=== PATIENT | male | born 1950 | race Caucasian/White ===

== ENCOUNTER 2018-03-02 14:28 | Outpatient (CLI) | payer OTHER, MEDICARE | END 2018-03-02 16:28 | disposition home or self-care (01) | LOC: VAS 14:28 | DX: M79.605 Pain in left leg (principal); M79.604 Pain in right leg | CPT/HCPCS: 93970 ==

== ENCOUNTER 2019-02-04 08:01 | Day surgery (SDC) | payer MEDICARE ==
[~2019-02-04] VITALS: Ht 185.4 cm; Wt 105.2 kg
--- NOTE | 2019-02-04 07:03 | Anethesia Preoperative Eval ---
Anesthesia Pre-op PMH/ROS General Date of Evaluation: February 04, 2019 Time of Evaluation: 07:02 Anesthesiologist: lourdes ASA Score: ASA 3 Mallampati Score Class I : Soft palate, uvula, fauces, pillars visible Class II: Soft palate, uvula, fauces visible Class III: Soft palate, base of uvula visible Class IV: Only hard plate visible Mallampati Classification: Class II Surgeon: adelaide Diagnosis: gerd, hx/o colon polyps Surgical Procedure: egd/colonoscopy Social History: smoking - former smoker Family History: no anesthesia problems Allergies: Coded Allergies: No Known Allergies (Unverified , 02/03/19) Medications: see eMAR Patient NPO?: Yes Past Medical History Cardiovascular: Reports: HTN Endocrine: Reports: DM Musculoskeletal/Integumentary: Reports: OA Anesthesia Pre-op Phys. Exam Physician Exam Last Vital Signs Date Time Temp Pulse Resp B/P (MAP) Pulse Ox O2 Delivery O2 Flow Rate FiO2 02/04/19 08:51 Room Air 02/04/19 08:45 98.7 60 20 124/74 97 Constitutional: NAD Neurologic: CN 2-12 intact Cardiovascular: RRR Respiratory: CTA Gastrointestinal: S/NT/ND Airway Exam Mallampati Score: Class II MO: limited Neck: flexible TMD: 2fb ROM: limited Anesthesia Pre-op A/P Risk Assessment & Plan Assessment: asa3 Plan: mac Status Change Before Surgery: No Pre-Antibiotics Drug: Ivet Torres MD February 04, 2019 07:03
[~2019-02-04 08:01] MED LIST: Atropine Inj 1mg/10ml Syr IV PRN; DiphenhydrAMINE 50mg/ml Inj IVP PRN; LR 1000ml 1,000 ML IVLG SCH; Midazolam 2mg/2ml Inj IVP PRN; fentaNYL 100 mcg/2 mL IV PRN
[2019-02-04 08:45] VITALS: BP 124/74
[2019-02-04] MEDS ORDERED: VITAMIN D1000 UNI1 ORAL (08:45)
[2019-02-04] MEDS ORDERED: VITAMIN C500 M1 ORAL (08:45)
[2019-02-04] MEDS ORDERED: FISH OIL CAP1000 MG ORAL (08:45)
[2019-02-04] MEDS ORDERED: Lidocaine 1% MPF 10mg/ml 5ml ONE (09:00)
[2019-02-04] MEDS ORDERED: Propofol 200mg/20ml IV ONE (09:00)
[2019-02-04] MEDS ORDERED: Glycopyrrolate 0.2mg/ml 1ml Vial ONE (09:00)
[2019-02-04] MEDS ORDERED: LR 1000ml ONE (09:00)
--- NOTE | 2019-02-04 09:05 | NUR ---
IV LR WAS STARTED BY PHILLIP BRIGHT RN. NO S/S OF INFILTRATION.
--- NOTE | 2019-02-04 09:40 | Short Stay Surgery H&P ---
History of Present Illness History of Present Illness Chief Complaint see typed H&P HPI Bal Osborn is a 68 year old male who was admitted on for Gerd, And History Of Colon Polyps Patient History Allergies: Coded Allergies: No Known Allergies (Unverified , 02/03/19) Medication History Scheduled Ascorbic Acid* (Vitamin C*), 1,000 MG ORAL DAILY, (Reported) Cholecalciferol (Vitamin D3)* (Vitamin D*), 1,000 UNIT ORAL DAILY, (Reported) Fish Oil (Fish Oil 1,000 mg Capsule), 1,000 MG ORAL DAILY, (Reported) Physical Exam Vital Signs Last Vital Signs Date Time Temp Pulse Resp B/P (MAP) Pulse Ox O2 Delivery O2 Flow Rate FiO2 02/04/19 08:51 Room Air 02/04/19 08:45 98.7 60 20 124/74 97 Plan Attestation Are the patient's medical conditions optimized for surgery? Alissa Augustine MD February 04, 2019 09:39
--- NOTE | 2019-02-04 09:40 | Pre-Procedure Note/Attestation ---
Pre-Procedure Note/Attestation Complete Prior to Procedure Planned Procedure: not applicable Procedure Narrative: EGD/colon Indications for Procedure Pre-Operative Diagnosis: GERD, h/o polyp Attestation I attest that I discussed the nature of the procedure; its benefits; risks and complications; and alternatives (and the risks and benefits of such alternatives ), prior to the procedure, with the patient (or the patient's legal marketing development representative). I attest that, if there was a reasonable possibility of needing a blood transfusion, the patient (or the patient's legal marketing development representative) was given the [facility] standardized written summary, pursuant to the Enmanuel Lilly Blood Safety Act ([place] Health and Safety Code # 1645, as amended). I attest that I re-evaluated the patient just prior to the surgery and that there has been no change in the patient's H&P, except as documented below: Alissa Augustine MD February 04, 2019 09:40
[2019-02-04 11:12] VITALS: BP 120/79
[2019-02-04 11:15] VITALS: BP 129/76
[2019-02-04 11:20] VITALS: BP 130/66
[2019-02-04 11:30] VITALS: BP_SYST 129; BP_SYST 130; BP_DIAS 69; BP_DIAS 73
--- NOTE | 2019-02-04 11:32 | Immediate Post-Op Evaluation ---
Immediate Post-Op Evalulation Immediate Post-Op Evalulation Procedure: egd/colonoscopy/bx Date of Evaluation: February 04, 2019 Time of Evaluation: 11:24 IV Fluids: 550ml lr Blood Products: none Estimated Blood Loss: negligible Blood Pressure Systolic: 120 Blood Pressure Diastolic: 79 Pulse Rate: 55 Respiratory Rate: 18 O2 Sat by Pulse Oximetry: 99 Temperature (Fahrenheit): 97.2 Pain Score (1-10): 0 Nausea: No Vomiting: No Complications none Patient Status: awake, reacts, patent Hydration Status: adequate Drug: Ivet Torres MD February 04, 2019 11:32
--- NOTE | 2019-02-04 11:34 | 48 Hour Post Anesthesia Eval ---
Post Anesthesia Evaluation Procedure: egd/colonoscopy/bx Date of Evaluation: February 04, 2019 Time of Evaluation: 11:26 Blood Pressure Systolic: 122 0: 78 Pulse Rate: 56 Respiratory Rate: 18 Temperature (Fahrenheit): 97.2 O2 Sat by Pulse Oximetry: 99 Airway: patent Nausea: No Vomiting: No Pain Intensity: 0 Hydration Status: adequate Cardiopulmonary Status: stable Mental Status/LOC: patient returned to baseline Post-Anesthesia Complications: none Follow-up care needed: N/A Ivet Agrawal MD February 04, 2019 11:34
[2019-02-04 11:45] VITALS: BP 122/79
--- NOTE | 2019-02-05 05:45 | Operative Note - Dictated ---
DATE OF OPERATION: 02/04/2019 GASTROENTEROLOGY PROCEDURE REPORT PROCEDURE: Upper gastrointestinal endoscopy with biopsy as well as colonoscopy with biopsy, injection and snare polypectomy. SURGEON: Alissa Augustine M.D. ANESTHESIOLOGIST: Ivet Cazares M.D. PRE-ENDOSCOPIC DIAGNOSES: 1. Symptoms of gastroesophageal reflux. 2. History of colonic polyps. POST-ENDOSCOPIC DIAGNOSES: 1. Proximal gastritis involving the proximal two-third of the stomach. 2. Multiple colonic polyps removed and biopsied, and snare polypectomy as described above totaling to about 8 polyps. DESCRIPTION OF PROCEDURE: The procedure, its risks, indications, alternatives, and possible complications including, but not limited to bleeding, infection, perforation, , and anesthesia complications were explained to the patient and informed consent was obtained. The diagnostic upper endoscope was introduced through the oropharynx and advanced to the duodenum without difficulty. The endoscope was then gradually withdrawn and the mucosa examined carefully. Examination of the upper gastrointestinal mucosa revealed nonerosive gastritis in the proximal two-third of the stomach. Biopsies were sent to pathology for review. Biopsies of her lower esophagus were also sent separately to pathology for review. Thereafter, the endoscope was removed. The rectal exam was done and a colonoscope was introduced into the rectum and advanced to about 5 to 10 cm into the terminal ileum. The colonoscope was then gradually withdrawn. The mucosa examined carefully. Examination of the colonic mucosa revealed 8 colonic polyps, which were found and removed as listed below. A diminutive polyp in the cecum was removed with a cold biopsy forceps, a diminutive polyp in the proximal ascending colon was removed with a cold biopsy forceps, a diminutive polyp in the mid-ascending colon was removed with a cold biopsy forceps, a pedunculated polyp in the mid ascending colon was first injected with saline at its base and then removed with a hot snare polypectomy and subsequently Endoclip. Another diminutive polyp in the ascending colon was removed with biopsy forceps. A semipedunculated polyp was removed with snare polypectomy in the transverse colon. Two other polyps were removed in the descending colon with a cold biopsy forceps. Retroflex view of the rectum was negative and the colonoscope was removed and the patient was sent to recovery in good condition. It should be noted that during the examination, the preparation was also felt to be suboptimal and there was stool seed material that frequently occluded the colonoscope making examination difficult. The patient will be advised to return in one year for follow-up colonoscopy. RECOMMENDATIONS: 1. Resume oral diet. 2. Follow up pathology. 3. Check and treat Helicobacter pylori if positive. 4. Repeat colonoscopy in one year. Thank you for asking me to participate in care of this patient. Alissa Augustine M.D. DR: AYN JOB#: [id number] CC: Francisco Dowell M.D.; Fax#: [phone] [facility]
--- NOTE | 2019-02-05 22:12 | Endoscopy Procedure Note ---
Endoscopy Procedure Note General Indication for Procedure: GERD polyp Procedures Performed: EGD, colonoscopy Operative Findings/Diagnosis: oralia , polyps Specimen: yes Estimated Blood Loss: none Anesthesia Anesthesiologist: report Anesthesia: MAC Medications Medication Given: see anesthesia record Inserted Devices Implant(s) used?: No GI Core Measures 50 yrs or older w/o bx or poly: No 10yrs. F/U recommended: No If not recommended, why?: Above average risk 18 years or older w/prev. colo: Yes <3yrs. since last colonoscopy: No Med reason:<3 yrs.: System Reason:<3 yrs.: Last colonoscopy >= to 3yrs: Yes Alissa Augustine MD February 05, 2019 22:12
--- NOTE | 2019-02-05 22:13 | Brief Operative Note ---
Immediate Post Operative Note Operative Note Chief Complaint: gerd, polyp Pre-op Diagnosis: GERD, h/o polyp Procedure: esophagogastroduodenoscopy colon Post-op Diagnosis: 1. Proximal gastritis involving the proximal two-third of the stomach. 2. Multiple colonic polyps removed and biopsied, and snare polypectomy as described above totaling to about 8 polyps. Surgeon: adelaide Anesthesiologist: report Anesthesia: MAC Specimen: yes Complications: none Condition: stable Fluids: per anesthesia Estimated Blood Loss: none Drains: none Implant(s) used?: No Alissa Augustine MD February 05, 2019 22:13
== END 2019-02-04 11:55 | disposition home or self-care (01) ==
LOC: GAS 08:01
DX: K21.9 Gastro-esophageal reflux disease without esophagitis (principal); Z86.010 Personal history of colon polyps; K29.50 Unspecified chronic gastritis without bleeding; K63.5 Polyp of colon; Z79.899 Other long term (current) drug therapy; I10 Essential (primary) hypertension; E78.00 Pure hypercholesterolemia, unspecified; E11.9 Type 2 diabetes mellitus without complications; M19.90 Unspecified osteoarthritis, unspecified site; Z87.891 Personal history of nicotine dependence; B96.81 Helicobacter pylori [H. pylori] as the cause of diseases classified elsewhere; D12.2 Benign neoplasm of ascending colon; D12.4 Benign neoplasm of descending colon; D12.3 Benign neoplasm of transverse colon
CPT/HCPCS: 43239; 45380; 45385; 82962; J2704; 94003; 94150